=== PATIENT | male | born 1965 | race Caucasian/White ===

== ENCOUNTER 2018-04-21 01:18 | Inpatient (IN) | END 2018-05-06 13:17 | disposition home or self-care (01) | DRG 674 ==

== ENCOUNTER 2018-08-29 07:30 | Day surgery (SDC) | END 2018-08-29 18:11 | disposition home or self-care (01) ==

== ENCOUNTER 2019-01-04 06:38 | Day surgery (SDC) | payer OTHER ==
[~2019-01-04] VITALS: Ht 167.6 cm; Wt 80.0 kg
[~2019-01-04 06:38] MED LIST: ACET325T40 PO; AMLO-147 PO; ASPI-1046 PO; CALC667C PO; CARV3.12 PO; CHOL100062 PO; CITR30SO PO; CYCL25CA10 PO; CYCL50CA5 PO; FURO20TA3 PO; HYDR-843 PO; OMEG100024 PO; OMEP20CA16 PO; PRAV20TA2 PO; SVL800C PO
[2019-01-04] MEDS ORDERED: PRAV20TA63 PO (06:53)
[2019-01-04] MEDS ORDERED: ASPI81TA52 PO (06:53)
[2019-01-04] MEDS ORDERED: FURO-110 PO (06:53)
[2019-01-04] MEDS ORDERED: AMLO-147 PO (06:54)
[2019-01-04] MEDS ORDERED: CALC667C PO (06:54)
[2019-01-04 06:58] VITALS: Ht 167.6 cm; Wt 80.0 kg
[2019-01-04 07:00] VITALS: BP 150/86; PULSE 80; RESP 18
[2019-01-04] MEDS ORDERED: MIDAZOLAM 1 MG/ML 2 ML INJ ONE (07:23)
[2019-01-04] MEDS ORDERED: HEPARIN 1000 UNITS/NS (A-LINE) 1,000 ML ONE (07:23)
[2019-01-04] MEDS ORDERED: SOD CHLORIDE 0.9% 500 ML ONE (07:23)
[2019-01-04] MEDS ORDERED: FENTAnyl 50 MCG/ML VIAL ONE (07:23)
[2019-01-04] MEDS ORDERED: LIDOCAINE 1% (MDV) 20 ML INJ ONE (07:23)
[2019-01-04] MEDS ORDERED: ONDANSETRON 4 MG INJ ONE (07:59)
--- NOTE | 2019-01-04 08:10 | SIPON ---
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
--- NOTE | 2019-01-04 08:16 | PDOCDIS ---
Discharge Instructions DIAGNOSIS Discharge Diagnosis End-stage renal disease CONDITION [id number] Patient Condition: [id number] Good HOME CARE INSTRUCTIONS: [id number] Special Diet: Njxtr7t Renal diet ACTIVITY: Fktod4Pz Activity Restrictions: Ehmfb8o Slowly Increase Activity Rest between Activity Avoid heavy lifting Do not Drive Do not operate Machinery Do not operate Power Tool Avoid Heavy Housework [id number] Bathing Restrictions: Nshgl6m Shower FOLLOW UP/APPOINTMENTS Follow-up Plan Shower in 48 hours Follow-up in 1 week for suture removal Follow-up for fistula surveillance NIKKY PEREZ MD Jan 04, 2019 08:16
[2019-01-04 08:40] VITALS: BP 120/74; PULSE 74; RESP 18
--- NOTE | 2019-01-04 08:45 | OPR ---
DATE OF OPERATION: 01/04/2019 PREOPERATIVE DIAGNOSES: End-stage renal disease and central stenosis. POSTOPERATIVE DIAGNOSES: End-stage renal disease and central stenosis. ANESTHESIA: Local with moderate sedation. ESTIMATED BLOOD LOSS: Minimal. COMPLICATIONS: None. HEPARIN: As recorded. CONTRAST: As recorded. ACCESS: Right internal jugular vein. CLOSURE: Manual compression 3-0 nylon suture. SEDATION: Under physician supervision, moderate sedation was administered intravenously under contin uous monitored by interventional team attending physician. Pulse oximeter, heart rate, blood pressur e were continuously monitored by interventional surgeon. The physician spent time was 60 minutes of [id number] sedation time with the patient. INDICATIONS: This is a 53-year-old gentleman who presented with history of end-stage renal disease a nd underwent a left arm brachial basilic fistula creation with transposition that has been started wi needle cannulation. The patient has tolerated dialysis well via the left upper extremity. The patient has had a right chest wall catheter for more than 6 months and concern for central stenosis t here, prior to removal of the Kkpd-P-Nuwunrkt. Therefore, he was scheduled for central venogram with possible intervention. Risks and benefits were discussed with the patient. He understood all the a lternatives, was able to repeat the information back to us, understanding the extent of the procedure and the risks involved. The patient has agreed to proceed. Risks including but not limited to blee ding, thrombosis, embolization, myocardial infarction, , stroke, device malfunction, infection, nephrotoxicity, and the patient has agreed to proceed. PROCEDURE: 1. SVC venogram. 2. Introduction of catheter into the SVC. 3. Venoplasty of the right internal jugular vein using 14 x 40 mm balloon. 4. Venoplasty of the right internal jugular vein/right brachiocephalic vein junction using a 14 x 40 mm balloon. 5. Removal of Lynd-V-Hdiwwwpw. DESCRIPTION OF PROCEDURE: The patient was brought into the angio suite and positioned in supine posi tion on the fluoroscopic table. Sedation was administered without any complications. The right ches t and neck were maximally shaved, prepped and draped in the usual standard fashion (ChloraPrep, steri le gloves and sterile gown, sterile draping and chlorhexidine). Local anesthesia was infiltrated in the region of the right tunneled chest wall catheter. Using a Magnolia, we went ahead and freed the cuf f from the surrounding granulation tissue. Once I was performed, we went ahead and passed a stiff wi re via the venous port into the proximal aspect of the SVC. The catheter was then pulled back to the junction of the right internal jugular vein, access site and a central venogram was then performed, which identified the patient having moderate stenosis in the junction of the right internal jugular v ein, right proximals brachiocephalic vein. At this point, decision was made to intervene as the ro ent has end-stage renal disease, will require to have central patency for future access. Therefore, we went ahead and removed our Gxeg-W-Covknywg using a guiding catheter, which was introduced into the SVC. We were able to guide stiff wire into the distal aspect of the IVC to have adequate wire acces s control. At this point, using a 14 x 40 mm balloon and performed venoplasty and the 2 segments of the right internal jugular vein, the right internal jugular vein/right brachiocephalic vein junction. The patient tolerated the procedure well. At this point, a completion angiogram identified less th an 30% residual stenosis. The patient tolerated procedure well. Therefore, the wire and balloon wer e removed. Manual compression was held. Using a 3-0 nylon suture our tunneled catheter insertion si te was closed. The patient tolerated procedure well and was taken to the postanesthesia care unit in stable condition. All instruments, needles and wires counts were correct x2. Dictated By: NIKKY GIBBONS/NAVARRO Conf#: [id number] DID#: [id number] CC: NIKKY PEREZ MD;*EndCC*
== END 2019-01-04 09:10 | disposition home or self-care (01) ==
LOC: SDS 06:38 → CCL 06:38
PROVIDERS: ATTEND Student in an Organized Health Care Education/Training Program
DX: I12.0 Hypertensive chronic kidney disease with stage 5 chronic kidney disease or end stage renal disease (principal); N18.6 End stage renal disease
CPT/HCPCS: 37248; 37249; 75827; 80048; 85025; 85610; 85730; J1644; J2250; J2405; J3010; J7040; Z7610

== ENCOUNTER 2019-01-18 11:13 | Day surgery (SDC) | payer OTHER ==
[~2019-01-18] VITALS: Ht 167.6 cm; Wt 80.9 kg
[~2019-01-18 11:13] MED LIST changes: -ACET325T40 PO; -ASPI-1046 PO; +ASPI81TA52 PO; -CARV3.12 PO; -CHOL100062 PO; -CITR30SO PO; -CYCL25CA10 PO; -CYCL50CA5 PO; +FURO-110 PO; -FURO20TA3 PO; -HYDR-843 PO; -OMEG100024 PO; -OMEP20CA16 PO; -PRAV20TA2 PO; +PRAV20TA63 PO; -SVL800C PO
[2019-01-18 11:48] VITALS: Ht 167.6 cm; Wt 80.9 kg
[2019-01-18 12:26] VITALS: BP 176/82; PULSE 89; RESP 16
[2019-01-18] MEDS ORDERED: MIDAZOLAM 1 MG/ML 2 ML INJ ONE ×2 (14:12)
[2019-01-18] MEDS ORDERED: FENTAnyl 50 MCG/ML VIAL ONE (14:12)
[2019-01-18 14:32] VITALS: BP 153/77; PULSE 82; RESP 18
== END 2019-01-18 14:58 | disposition home or self-care (01) ==
LOC: GIL 11:13
PROVIDERS: ATTEND Internal Medicine Gastroenterology
DX: D12.5 Benign neoplasm of sigmoid colon (principal); K64.8 Other hemorrhoids; I10 Essential (primary) hypertension
CPT/HCPCS: 45385; 88305; J2250; J3010; Z7610